=== PATIENT | female | born 1945 | race Two or more races ===

== ENCOUNTER → 2016-11-14 | Day surgery (SDC) | payer MEDICARE, BC ==
[~2016-11-14] VITALS: Ht 152.4 cm; Wt 77.0 kg
[~2016-11-14] MED LIST: EXCEDRIN MIGRA1 EACH PO; LEVOTHROID (SY88 MCG PO; LIPITOR20 M1 PO; LOPRESSOR25 MG PO; PRILOSEC20 MG PO
--- NOTE | ~2016-11-14 | OR ---
PATIENT'S NAME: BRAYAN URENA [facility] AGE: 70 Y [address] ROOM: [place] [address] LOCATION: [facility] [place] ADMIT DATE: 11/14/2016 OR/Procedure Report DISCHARGE DATE: FAMILY PHYSICIAN: Gabriela Watkins MD ATTENDING PHYSICIAN: Marino Hi SURGEON: Marino Hi MD STONEWORK TRACER: DATE OF PROCEDURE: 11/14/2016 HISTORY: This is a 70-year-old lady with gross hematuria, recent episode of right lower quadrant pain, and a CT scan with right hydronephrosis. The right hydronephrosis resolved on followup scanning. There was a question of a passed calculus. She was evaluated for hematuria in 2010. She had a CT scan and cystoscopy. There was a vague lesion in her left kidney at that time. MRI was recommended. She did not get that done. However, here we are 6 years later, and she has had [address] scans which suggest no obvious lesion in the left kidney. With the exception of the mild right hydronephrosis, there were no obvious upper tract changes on her recent CT scans. With her gross hematuria, she presents for cystoscopy and a contrast study of her upper tracts. Her NMP22 BladderCheck was negative. DESCRIPTION OF PROCEDURE: Cystoscopy was undertaken. The urethra was unremarkable. She had a cystocele. We had to look down to see her orifices. As we will see on her retrograde studies, her bladder neck was well below her symphysis. Careful examination of the bladder using the 30- and 70-degree lenses revealed no mucosal lesions. Preliminary survey was undertaken. She had clips in the left hemipelvis, clips in the gallbladder fossa, and hardware in her back. There were no other calcifications noted. Contrast instilled on the left side first. There were no filling defects. The ureter was delicate and narrow. The calices were finely cupped. Attention was turned to the right side. Again, the ureter was delicate and unobstructed with no filling defects. There was a persistent area in the mid pole calyx that I could not get to fill out. Consideration was given to ureteroscopy. However, she had a very narrow ureter. Rather than stent her and come back, I am simply going to get a CT urogram in 4 to 6 weeks and revisit that area. With a radical standpoint, she certainly could have had a small clot that obstructed her right kidney, causing her pain and mild PATIENT'S NAME: BRAYAN URENA [facility] AGE: 70 Y [address] ROOM: [place], [place] [address] LOCATION: [facility] [place] ADMIT DATE: 11/14/2016 OR/Procedure Report DISCHARGE DATE: FAMILY PHYSICIAN: Gabriela Watkins MD ATTENDING PHYSICIAN: Marino Hi hydronephrosis. No actual stone was seen. The bladder was drained, and the case was concluded. She tolerated the procedure well. Blood loss was negligible. No specimens were sent. The patient returned to the outpatient recovery awake and in stable condition. She will resume her usual diet and activity. I will see her back in 4 weeks. Arrangements will be made for the CT urogram. MARINO HI MD [facility]/modl /[id number] CC: Gabriela Watkins MD d: 11/14/16 1428 t: 11/29/16 1024, OPERATIVE SUMMARY
[2016-11-14 12:03] LABS: BASOPHIL # 0.1 K/uL (0.0-0.2); BASOPHIL % 0.8 %; EOSINOPHIL # 0.1 K/uL (0.0-0.5); EOSINOPHIL % 1.4 %; HEMATOCRIT 40.9 % (33.0-46.0); HEMOGLOBIN 13.6 g/dL (10.0-15.0); IMMATURE GRANULOCYTE % 0.3 %; LYMPHOCYTE # 2.1 K/uL (0.8-4.0); LYMPHOCYTE % 32.4 %; MCH 30.2 pg (27.0-34.0); MCHC 33.3 gm/dL (32.0-36.5); MCV 90.7 fl (83.0-98.0); MONOCYTE # 0.4 K/uL (0.0-1.0); MONOCYTE % 6.6 %; MPV 10.3 fl (9.4-12.4); NEUTROPHIL # (ANC) 3.7 K/uL (1.8-7.8); NEUTROPHIL % 58.5 %; NRBC % 0 /100WBC (0-0.00); PLATELET COUNT 272 K/uL (150-450); RBC 4.51 M/uL (3.50-5.50); RDW-CV 13.2 % (11.9-14.6); WBC 6.4 K/uL (4.0-11.0)
[2016-11-14 12:19] LABS: ALBUMIN 3.8 gm/dL (3.5-5.0); ALK PHOS 94 IU/L (33-138); ALT 26 IU/L (12-78); ANION GAP 9.1 (10.0-19.0); AST 22 IU/L (10-40); BLOOD UREA NITROGEN 11 mg/dL (6-24); CALCIUM 8.5 mg/dL (8.5-10.5); CHLORIDE 107 mMol/L (96-110); CO2 29 mMol/L (22-32); CREATININE 0.8 mg/dL (0.5-1.1); ESTIMATED GFR (MDRD EQUATION) > 60; POTASSIUM 4.1 mMol/L (3.7-5.1); SODIUM 141 mMol/L (135-145); TOTAL BILIRUBIN 1.2 mg/dL (0.0-1.5); TOTAL PROTEIN 7.6 g/dL (6.0-8.4)
== END ==
LOC: GPOC 11-11 14:00 → GSDC 10:53 → GPOC 11:00
PROVIDERS: Urology
PROC: BT14ZZZ Fluoroscopy of Kidneys, Ureters and Bladder (ICD-10-PCS; principal; 2016-11-14)
DX: N13.30 Unspecified hydronephrosis (principal); N81.10 Cystocele, unspecified; K21.9 Gastro-esophageal reflux disease without esophagitis; F32.9 Major depressive disorder, single episode, unspecified; M81.0 Age-related osteoporosis without current pathological fracture; E03.9 Hypothyroidism, unspecified; I25.9 Chronic ischemic heart disease, unspecified; Z91.048 Other nonmedicinal substance allergy status; Z79.82 Long term (current) use of aspirin; Z79.899 Other long term (current) drug therapy; Z88.2 Allergy status to sulfonamides; Z88.5 Allergy status to narcotic agent; Z88.8 Allergy status to other drugs, medicaments and biological substances
CPT/HCPCS: J1956; J2001; J2250; J2405; J2550; J7030